=== PATIENT | female | born 1995 | race Caucasian/White ===

== ENCOUNTER 2024-09-22 06:40 | Day surgery (SDC) | payer BC, SELFPAY ==
[2024-09-19 07:49] VITALS: BMI 19.3
[2024-09-22] VITALS (8 sets, daily range): BP systolic 100–120; BP diastolic 66–76; PULSE 12–87; RESP 14–98; TEMP 36.5–37.2; O2SAT 97–100; BMI 19.3
[2024-09-22] MEDS: ACETAMINOPHEN 325 MG TABLET 975 MG PO (07:12)
[2024-09-22] MEDS: LACTATED RINGERS 1,000 ML 42 ML IV (07:14)
--- NOTE | 2024-09-22 07:37 | PM.GYNHP.1 ---
History of Present Illness History of Present Illness Narrative: Tracy Hsu is a 28 year old female with an embedded IUD. She is here for a diagnostic hysteroscopy and IUD removal. Attempted removal in the office but was unable. [facility] Social History household members: significant other Smoking Status: Never smoker alcohol intake: current Meds Home Medications and Allergies Home Medications Medication Instructions Recorded Confirmed Type No Known Home Medications 09/18/24 09/18/24 History Allergies Allergy/AdvReac Type Severity Reaction Status Date / Time amoxicillin [From Augmentin] Allergy Mild Rash Verified 09/22/24 07:10 clavulanic acid Allergy Mild Rash Verified 09/22/24 07:10 [From Augmentin] Exam Vital Signs (past 8 hours): - 09/22/24 07:30 Temperature 98.9 F Pulse Rate 85 Respiratory Rate 19 Blood Pressure 120/75 Pulse Oximetry 100 Oxygen Delivery Method Room Air Oxygen Delivery Method Room Air Narrative Exam Narrative: Generally: NAD Lungs: CTA bilat CV: RRR Abd: Soft, flat, no scars. Ext: No edema Assessment & Plan Assessment & Plan narrative: Assessment: 28 year old G0 with an embedded IUD, unable to remove in the office Plan: Diagnostic hysteroscopy with removal of IUD The risks, alternatives to the procedure were explained to the patient including bleeding, infection, and uterine width duration she understands these risks and agrees to proceed. A full par Q was held and signed. Time-Based Coding :: [TOTAL MINUTES] spent with patient and on the chart (including review of chart, obtaining history, exam, reviewing outside data, placing orders, documenting exam and treatment plan, and counseling patient) on [DATE].
--- NOTE | 2024-09-22 07:44 | PM.PREOP ---
Pre-operative Note Interval Note History & Physical reviewed/Exam performed by Physician: Yes Changes to H&P: No H&P completed within 30 days and has changed as indicated here:: 09/22/24
--- NOTE | 2024-09-22 07:55 | SUR.OPER ---
Lithotomy on padded OR bed, head on pillow, arms secured on padded arm boards at <90 degrees abduction. Legs secured in padded yellow fins stirrups.
--- NOTE | 2024-09-22 08:10 | PM.GYNOP.1 ---
Operative Date/Time/Diagnoses Date of procedure: 09/22/24 Time of procedure: 08:10 Pre-op diagnosis: Embedded IUD in uterine wall Unable to remove in the office Post-op diagnosis: same Procedure & Clinicians Procedure: Procedures Operation Date: 09/22/24 07:45 Actual Procedure Side Surgeon p Diagnostic Hysteroscopy with removal of IUD Elham Sewell MD Indications: 28-year-old 0 with an IUD that is embedded in the uterine wall. We were unable to remove this in the office due to patient discomfort. Surgeon: Elham Sewell Anesthesia Type: General (LMA) Operative Notes Findings: Six week size anteverted uterus IUD strings in the mid uterus Right arm of the ParaGard IUD in embedded in the right uterine wall Closure Type: not applicable Specimen(s): none Estimated blood loss (mL): 3 Procedure in detail: After informed consent was obtained the patient was taken to the operating room where she was placed in the dorsal supine position. Adequate LMA general anesthesia was achieved, she was placed in the dorsal lithotomy position, and prepped and draped in the usual sterile fashion. A time-out was performed. A bivalve speculum was placed into the vagina. A single-tooth tenaculum was placed on the anterior lip of the cervix. The cervical os was sequentially dilated to the # 8 Hegar dilator. The MyoSure scope passed easily into the endometrial cavity. The strings were visible at the mid uterus. The ParaGard IUD right arm was embedded in the right uterine wall. The hysteroscope was removed. The polyp forceps were passed into the endometrial cavity and the IUD was grasped and it was removed intact. The single-tooth tenaculum was removed from the anterior lip of the cervix. The bivalve speculum was removed from the vagina. Sponge, lap, and instrument counts were correct x2. The patient tolerated the procedure well, and was taken to PACU in stable condition. Complications: none Post-operative Condition: stable Disposition: PACU Plan for aftercare: Home after recovery
[2024-09-22] MEDS: ONDANSETRON 4 MG/2 ML INJ IV (08:32)
[2024-09-22] MEDS: OXYCODONE IR 5 MG TABLET PO (08:33)
== END 2024-09-22 09:11 | disposition home or self-care (01) ==
PROVIDERS: Referring Provider Obstetrics & Gynecology; Visit Provider Obstetrics & Gynecology
PROC: 0UDB8ZZ Extraction of Endometrium, Via Natural or Artificial Opening Endoscopic (ICD-10-PCS; CPT 58558; principal; 2024-09-22 07:45)
DX: T83.32XA Displacement of intrauterine contraceptive device, initial encounter (principal); Z30.432 Encounter for removal of intrauterine contraceptive device
CPT/HCPCS: 58562; J1100; J1885; J2250; J2405; J2704; J3010

== ENCOUNTER 2024-12-18 06:14 | Emergency (ER) | payer SELFPAY ==
[2024-12-18] VITALS (9 sets, daily range): BP systolic 112–146; BP diastolic 74–93; PULSE 64–94; RESP 15–22; TEMP 37.1; O2SAT 97–100; BMI 19.6
[2024-12-18 06:33] LABS: Add Manual Diff / Slide Review NO; Basophils Absolute Auto 100 /uL (0-100); Basophils Percent Auto 1.1 % (0-2); Eosinophils Absolute Auto 300 /uL (0-450); Hematocrit 38.8 % (36-46); Hemoglobin 13.2 g/dL (12.0-16.0); Lymphocytes Absolute Auto 2800 /uL (1100-4500); Lymphocytes Percent Auto 30.6 % (25-40); Mean Corpuscular Hemoglobin 31.1 PG (26-34); Mean Corpuscular Volume 91.3 fL (80-100); Monocytes Absolute Auto 700 /uL (0-900); Monocytes Percent Auto 7.1 % (3-14); Neutrophils Absolute Auto 5300 /uL (1500-7000); Neutrophils Percent Auto 58.2 % (50-75); Platelet Count 296 X10^3/uL (150-400); Red Blood Cell Count 4.24 X10^6/uL (4.0-5.2); White Blood Cell Count 9.2 X10^3/uL (4.5-11.0)
--- NOTE | 2024-12-18 06:33 | DI.US.S_ITS ---
PROCEDURE: US PELVIC COMPLETE INDICATIONS: sudden onsent RLQ pain, on menses, HCG neg TECHNIQUE: Real-time scanning was performed of the pelvic organs, with image documentation. Additional endovaginal scanning was necessary due to incomplete visualization of the adnexal and endometrial structures by transabdominal scanning. COMPARISON: [facility], CT, CT ABDOMEN PELVIS W CON, 12/18/2024, 7:11. FINDINGS: Uterus: Uterus is anteverted and normal in size at 7.4 x 3.4 x 5.3 cm. The myometrium is homogeneous. The endometrium measures 5 mm combined thickness. Ovaries: The right ovary measures 2.8 x 5.6 x 2.7 cm, with a calculated ovarian volume of 22 cc. The left ovary measures 1.4 x 2.5 x 2.1 cm, with a calculated ovarian volume of 4 cc. The ovaries have a normal sonographic appearance. Less than 12 follicles can be seen in each ovary. No adnexal masses are seen. Thick-walled right ovarian cystic lesion with the portion of the wall which appears thinned. Additionally, there is echogenic material with acute angulation internally. This measures 3.1 x 2.0 x 2.4 centimeter. Other: No pathologic free abdominal or pelvic fluid. IMPRESSION: Probable ruptured right ovarian hemorrhagic cyst versus hemorrhagic corpus luteum. Given pelvic pain, recommend follow-up in 6-12 weeks per consensus guidelines. We strive to produce accurate, complete, and clear reports of imaging services. To assist us in improving patient care, this report was composed using standard report templates and voice recognition software. Therefore, it may contain abnormal punctuation, insertions and/or omissions. Occasional wrong-word or sound-alike substitutions may occur. Though we review the report and make efforts to correct it, we do recommend that the report be read carefully in proper context to recognize any text inaccuracies. Dictated by: Rayo Nuñez M.D. on 12/18/2024 at 8:10 Approved by: Rayo Nuñez M.D. on 12/18/2024 at 8:16
[2024-12-18] MEDS: KETOROLAC 30 MG/ML VIAL 15 MG IV (06:38)
[2024-12-18 06:42] LABS: Alanine Aminotransferase 14 IU/L (<35); Albumin 4.7 g/dL (3.5-5.0); Albumin Globulin Ratio 1.7 (1.0-2.8); Alkaline Phosphatase 49 U/L (38-126); Aspartate Aminotransferase 19 IU/L (14-36); Bilirubin Total 0.5 mg/dL (0.2-1.3); Blood Urea Nitrogen 12 mg/dL (7-17); Calcium 9.3 mg/dL (8.4-10.2); Carbon Dioxide 23 mmol/L (22-32); Chloride 105 mmol/L (98-107); Estimated Glomerular Filt Rate > 60 mL/min (>60); Globulin 2.8 g/dL (1.7-4.1); Glucose 105 mg/dL (70-100); HEMOLYSIS < 15 (0-50); Lipase 131 U/L (23-300); Potassium 3.9 mmol/L (3.4-5.1); Sodium 139 mmol/L (137-145); Total Protein 7.5 g/dL (6.3-8.2)
--- NOTE | 2024-12-18 07:00 | ED_ITS ---
HPI - Abdominal Pain General Chief Complaint: Abdominal Pain Stated Complaint: abd pain Time Seen by Provider: 12/18/24 06:33 Source: patient Mode of arrival: Ambulatory History of Present Illness HPI narrative: 29-year-old female no significant past medical history presents from home for evaluation of right lower quadrant abdominal pain, states it has been causing her enough pain that it is making her slightly lightheaded/dizzy. States that her symptoms are different from her normal menstrual cycle pains, states she is currently on her period. She denies any other symptoms such as headache visual disturbances chest pain shortness of breath fever chills or any other GI/ symptoms time. Related Data Previous Rx's Medication Instructions Recorded ondansetron 4 mg disintegrating 4 mg PO Q6H PRN nausea and 09/25/24 tablet vomiting #20 tabs norethindrone (contraceptive) 0.35 0.35 mg PO DAILY #84 tabs 10/27/24 mg tablet ondansetron 4 mg disintegrating 4 mg PO Q8H PRN nausea and 12/18/24 tablet vomiting 5 days #15 tabs sulfamethoxazole 800 1 tab PO BID 5 days #10 tabs 12/18/24 mg-trimethoprim 160 mg tablet (Bactrim DS) Allergies Allergy/AdvReac Type Severity Reaction Status Date / Time amoxicillin [From Augmentin] Allergy Mild Rash Verified 10/27/24 15:49 clavulanic acid Allergy Mild Rash Verified 10/27/24 15:49 [From Augmentin] Review of Systems Review of Systems Narrative: General: Denies fever, chills, weight loss HEENT: Denies headache, eye drainage, eye irritation, head trauma, sore throat, voice change Cardiovascular: Denies any chest pain, palpitations, shortness of breath, tachycardia Respiratory: Denies any shortness of breath, cough, wheeze, stridor GI/: Positive abdominal pain, denies nausea, vomiting, diarrhea, bright red blood per rectum, melanotic stools, urinary frequency, urinary retention, dysuria, hematuria MSK: Denies any joint pain, muscle pains, swelling Skin: Denies any rashes, lesions, discoloration Neuro: Denies any headache, lightheadedness, dizziness, fainting, weakness Psych: Denies SI/HI Patient History Social History household members: significant other Smoking Status: Never smoker alcohol intake: current Smoking Status: Never smoker alcohol intake frequency: holidays/special occasions only Exam Narrative Exam Narrative: General: Cooperative, comfortable, well-developed, not in acute distress HEENT: Normocephalic, atraumatic, PERRLA, normal sclera, eyelids normal, Neck: Active full range of motion, atraumatic Chest: Normal to inspection, negative crepitus, no overlying erythema ecchymosis Respiratory: Normal respiratory effort, not in acute respiratory distress, clear to auscultation bilaterally negative cough, wheeze, tachypnea, rhonchi, rales Cardiology: Regular rate rhythm negative gallop, murmur, rubs GI/: Normal to inspection, soft, nonrigid, minor tenderness to palpation to the lower abdomen, exam deferred MSK: Full range of active range of motion of all 4 extremities, atraumatic Skin: No rashes lesions noted Neuro: Alert awake oriented x3, moves all 4 extremities spontaneously, cranial nerves intact, able to answer all questions appropriately follows commands appropriately Psych: Cooperative, negative suicidal or homicidal ideations Initial Vital Signs Initial Vital Signs: Vital Signs Temperature 98.7 F 12/18/24 06:18 Pulse Rate 94 H 12/18/24 06:18 Respiratory Rate 18 12/18/24 06:18 Blood Pressure 146/93 H 12/18/24 06:18 Pulse Oximetry 100 12/18/24 06:18 Oxygen Delivery Method Room Air 12/18/24 06:18 Course Orders Ordered: ED Orders 12/18/24 06:21 Complete Blood Count AUTO DIFF Stat Comprehensive Metabolic Panel Stat Lipase Stat 12/18/24 06:31 Urine Culture Stat Urine Microscopic Stat 12/18/24 06:33 US pelvic complete Stat 12/18/24 07:03 CT abdomen pelvis w con Stat Ondansetron HCl (Ondansetron 4 Mg/2 Ml Inj) 4 mg IV NOW PRN PRN Reason: Nausea And Vomiting Ondansetron HCl (Ondansetron 4 Mg Odt) 4 mg PO NOW PRN PRN Reason: Nausea And Vomiting Discontinued Medications Sodium Chloride (Normal Saline 0.9%) 1,000 mls @ 1,000 mls/hr IV BOLUS ONE Stop: 12/18/24 08:10 Last Admin: 12/18/24 07:56 Dose: 1,000 mls/hr Documented By: RB Ketorolac Tromethamine (Ketorolac 30 Mg/Ml Vial) 15 mg IV NOW ONE Stop: 12/18/24 06:36 Last Admin: 12/18/24 06:38 Dose: 15 mg Documented By: DANI Morphine Sulfate (Morphine 4 Mg/Ml Inj) 4 mg IV NOW ONE Stop: 12/18/24 07:12 Last Admin: 12/18/24 07:56 Dose: 2 mg Documented By: RB Ondansetron HCl (Ondansetron 4 Mg/2 Ml Inj) 4 mg IV NOW ONE Stop: 12/18/24 07:12 Last Admin: 12/18/24 07:56 Dose: 4 mg Documented By: RB Trimethoprim/Sulfamethoxazole (Trimeth/Sulfa 160/800 (Ds) Tablet) 1 tab PO NOW ONE Stop: 12/18/24 08:33 Vital Signs Vital signs: Vital Signs - 8 hr 12/18/24 06:18 Temperature 98.7 F Pulse Rate 94 H Respiratory Rate 18 Blood Pressure 146/93 H Pulse Oximetry 100 Oxygen Delivery Method Room Air MDM - Abdominal Pain Differential Diagnosis Differential diagnosis: Likely acute appendicitis, constipation, diverticulitis, small bowel obstruction and other (Urinary tract infection, pyelonephritis, electrolyte abnormality) Lab Data 12/18/24 06:21 12/18/24 06:21 Labs: Lab Results 12/18/24 12/18/24 Range/Units 06:21 06:31 WBC 9.2 (4.5-11.0) X10^3/uL RBC 4.24 (4.0-5.2) X10^6/uL Hgb 13.2 (12.0-16.0) g/dL Hct 38.8 (36-46) % MCV 91.3 (80-100) fL MCH 31.1 (26-34) PG MCHC 34.0 (30-36) % RDW 13.0 (11.6-14.8) % Plt Count 296 (150-400) X10^3/uL Neut % (Auto) 58.2 (50-75) % Lymph % (Auto) 30.6 (25-40) % Mobile % (Auto) 7.1 (3-14) % Eos % (Auto) 3.0 (2-4) % Baso % (Auto) 1.1 (0-2) % Neut # (Auto) 5300 (0471-2294) /uL Lymph # (Auto) 2800 (3747-8906) /uL Mobile # (Auto) 700 (0-900) /uL Eos # (Auto) 300 (0-450) /uL Baso # (Auto) 100 (0-100) /uL Sodium 139 (137-145) mmol/L Potassium 3.9 (3.4-5.1) mmol/L Chloride 105 (98-107) mmol/L Carbon Dioxide 23 (22-32) mmol/L BUN 12 (7-17) mg/dL Creatinine 0.80 (0.52-1.04) mg/dL Estimated GFR > 60 (>60) mL/min BUN/Creatinine Ratio 15.0 (6-22) Glucose 105 H (70-100) mg/dL Calcium 9.3 (8.4-10.2) mg/dL Total Bilirubin 0.5 (0.2-1.3) mg/dL AST 19 (14-36) IU/L ALT 14 (<35) IU/L Alkaline Phosphatase 49 (38-126) U/L Total Protein 7.5 (6.3-8.2) g/dL Albumin 4.7 (3.5-5.0) g/dL Globulin 2.8 (1.7-4.1) g/dL Albumin/Globulin Ratio 1.7 (1.0-2.8) Lipase 131 (23-300) U/L Urine RBC 10-30/hpf H (0-5/HPF) Urine WBC 10-30/hpf H (0-5/HPF) Ur Squamous Epith Cells 1-5 /hpf (0-5/HPF) Urine Bacteria Few (2-10) H (None) Urine Mucus 3+ H (Negative) Ur Culture Indicated? Specimen cultured Vol Urine Centrifuged 10ml (spun) Point of care testing: Point of Care Testing Test Results Negative Urine Dip Bedside Urine Glucose Negative Bedside Urine Bilirubin - Negative Bedside Urine Ketone - Negative Urine Specific [place] 1.025 Bedside Urine Occult Blood +++ Bedside Urine pH 6 Bedside Urine Protein +/- 15 Bedside Urine Urobilinogen - Negative Bedside Urine Nitrite - Negative Bedside Urine Leukocytes - Negative Esterase Imaging Data US - COMBINATION PRESSER: Radiologist's Impression: [address] [address] Ultrasound Report Signed Patient: Tracy Hsu MR#: [id number] : 1995 Acct:[id number] Age/Sex: 29 / F Date of Service: 12/18/24 Loc: ED Accession Number: [id number] Procedure: US pelvic complete Ordering Provider: Alfred Easley MD PROCEDURE: US PELVIC COMPLETE INDICATIONS: sudden onsent RLQ pain, on menses, HCG neg TECHNIQUE: Real-time scanning was performed of the pelvic organs, with image documentation. Additional endovaginal scanning was necessary due to incomplete visualization of the adnexal and endometrial structures by transabdominal scanning. COMPARISON: [facility], CT, CT ABDOMEN PELVIS W CON, 12/18/2024, 7:11. FINDINGS: Uterus: Uterus is anteverted and normal in size at 7.4 x 3.4 x 5.3 cm. The myometrium is homogeneous. The endometrium measures 5 mm combined thickness. Ovaries: The right ovary measures 2.8 x 5.6 x 2.7 cm, with a calculated ovarian volume of 22 cc. The left ovary measures 1.4 x 2.5 x 2.1 cm, with a calculated ovarian volume of 4 cc. The ovaries have a normal sonographic appearance. Less than 12 follicles can be seen in each ovary. No adnexal masses are seen. Thick-walled right ovarian cystic lesion with the portion of the wall which appears thinned. Additionally, there is echogenic material with acute angulation internally. This measures 3.1 x 2.0 x 2.4 centimeter. Other: No pathologic free abdominal or pelvic fluid. IMPRESSION: Probable ruptured right ovarian hemorrhagic cyst versus hemorrhagic corpus luteum. Given pelvic pain, recommend follow-up in 6-[address] weeks [address] guidelines. CT scan - abdomen/pelvis: Radiologist's Impression: Preliminary read showing no evidence of colitis diverticulitis bowel obstruction obstructive uropathy or acute appendicitis, questionable inflammatory changes adjacent to the cervix and uterus otherwise no acute finding MDM Narrative Medical decision making narrative: 29-year-old female presenting for right lower quadrant abdominal pain started several hours prior to arrival. Patient does endorse some nausea associated with the pain but no emesis. States that she is currently on her menstrual cycle. Not on any blood thinners. No trauma no falls. Urinalysis consistent with an acute urinary tract infection patient will be given antibiotics here and sent home with a prescription. Patient allergic to penicillins therefore will give Bactrim. Ultrasound showing evidence of hemorrhagic cyst as well as a 3 cm cyst to the left. CT scan without any acute findings. Repeat abdominal exam at discharge is soft nontender non peritoneal nature. Lab work unremarkable, patient will be sent home with outpatient follow up with OBGYN, patient follows with Dr. Sewell, as well as primary care, strict return precautions given they verbalized understanding of this and agrees to being discharged home with outpatient follow up Discharge Plan Departure Patient Disposition: Home Clinical Impression: Urinary tract infection, Ovarian cyst, Hemorrhagic cyst of ovary Instructions: DI for Urinary Tract Infection (UTI) Activity Restrictions/Additional Instructions: Please follow up with the primary care and OBGYN in outpatient setting Please read the discharge instructions sheet carefully and bring all papers to all doctor follow-up visits, as it may contain information that your doctor may want to see. Disease processes change and evolve, if your symptoms worsen or if you develop any new symptoms that are concerning to you please return for evaluation. Your evaluation today does not show any evidence of any life- threatening/serious illnesses requiring admission to the hospital or surgery. Please follow-up with your doctor for re-evaluation in approximately 1 day. Seek immediate medical attention for any worrisome symptoms. *If you do not have a primary care provider please contact the [facility] Resource line at [phone]. They will ask some questions about your medical history and help get you set up with a doctor in the community. Prescriptions: New sulfamethoxazole-trimethoprim [Bactrim DS] 800-160 mg tablet 1 tab PO BID 5 Days Qty: 10 0RF ondansetron 4 mg tablet,disintegrating 4 mg PO Q8H PRN (Reason: nausea and vomiting) 5 Days Qty: 15 0RF No Action ondansetron 4 mg tablet,disintegrating 4 mg PO Q6H PRN (Reason: nausea and vomiting) Qty: 20 0RF norethindrone (contraceptive) 0.35 mg tablet 0.35 mg PO DAILY Qty: 84 3RF Referrals: Miscellaneous,Doctor, [Primary Care Provider] - Stand Alone Forms: Patient Portal/API/Survey
--- NOTE | 2024-12-18 07:03 | DI.CT.S_ITS ---
PROCEDURE: CT ABDOMEN PELVIS W CON INDICATIONS: RLQ abd pain TECHNIQUE: After the administration of intravenous contrast, axial sections acquired from the lung bases to the pubic symphysis. Coronal and sagittal reformats were performed. For radiation dose reduction, the following was used: automated exposure control, adjustment of mA and/or kV according to patient size. COMPARISON: [facility], , US PELVIC COMPLETE, 12/18/2024, 6:51. FINDINGS: Image quality: Diagnostic. Lower Chest: No significant findings. ABDOMEN: Liver: No solid mass. Gallbladder: No radiopaque gallstones or wall thickening. Biliary ducts: No biliary dilation. Pancreas: No ductal dilation. Spleen: Size is within normal limits. Adrenal Glands: No adrenal nodules. Kidneys and Ureters: No hydronephrosis. No solid mass. No complex renal cystic lesion which requires follow up. Stomach and Bowel: Normal colonic caliber, without significant wall thickening. Probable normal appendix. Peritoneum: No abnormal intraperitoneal fluid. No free air. Ventral Wall: No significant ventral hernia. Abdominal Nodes: No retroperitoneal or mesenteric adenopathy by size criteria. Vessels: Aorta and inferior vena cava are normal in size. PELVIS: Pelvic Organs: There is physiologic fluid in the pelvis. A ruptured right ovarian cyst is noted on ultrasound.. Bladder: No bladder wall thickening, accounting for underdistention. Pelvic Nodes: No enlarged lymph nodes. Miscellaneous: No inguinal hernias are seen. Bones: No aggressive osseous abnormality. Incidental note is made of a minimal posterior disc protrusion at L1-L2 and a disc bulge at L5-S1. IMPRESSION: 1. Normal appendix. No acute appendicitis. 2. Findings likely are related to a ruptured right ovarian cyst with physiologic fluid. 3. Incidental note made a minimal disc protrusion at L1-L2 and disc bulge at L5-S1. Comment: Final report is concordant with preliminary interpretation provided by [facility]. Dictated by: Ryley Berg M.D. on 12/18/2024 at 8:29 Approved by: Ryley Berg M.D. on 12/18/2024 at 8:34
[2024-12-18 07:05] LABS: RBC Urine 10-30/HPF (0-5/HPF); Squamous Epithelial Cell Urine 1-5 /HPF (0-5/HPF); Urine Volume 10mL (spun); WBC Urine 10-30/HPF (0-5/HPF)
[2024-12-18 07:06] LABS: Bacteria Urine Few (2-10); Mucus Urine 3+ (Negative)
[2024-12-18 07:07] LABS: Culture Indicated Urine Specimen Cultured
[2024-12-18] MEDS: MORPHINE 4 MG/ML INJ IV (07:56)
[2024-12-18] MEDS: ONDANSETRON 4 MG/2 ML INJ IV (07:56)
[2024-12-18] MEDS: SODIUM CHLORIDE 0.9% 1,000 ML 1000 ML IV (07:56)
--- NOTE | 2024-12-18 07:57 | PC.NURSE ---
radiology tech brought patient back and informed this RN that there was blood on bedding when she was transferred from table. CT replaced bedding. This RN immediately asked patient about bleeding. Patient informed this RN that she just started her period. Provider aware. Patient declined to have 4mg of morphine and instead asked for only 2mg to be administered. 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
[2024-12-18] MEDS: TRIMETH/SULFA 160/800 (DS) TABLET 1 TAB PO (08:46)
== END 2024-12-18 08:49 | disposition home or self-care (01) ==
PROVIDERS: Emergency Medicine; Emergency Provider Student in an Organized Health Care Education/Training Program
DX: N39.0 Urinary tract infection, site not specified (principal); N83.201 Unspecified ovarian cyst, right side; R11.0 Nausea
CPT/HCPCS: 36415; 74177; 76856; 80053; 81003; 81015; 81025; 83690; 85025; 87077; 87086; 87186; 96361; 96374; 96375; 99284; J1885; J2270; J2405; Q9967

== ENCOUNTER → 2025-04-10 11:51 | Outpatient (CLI) | payer BC, SELFPAY ==
--- NOTE | 2025-04-10 11:53 | DI.US.S_ITS ---
PROCEDURE: US PELVIC COMPLETE INDICATIONS: Pelvic pain/follow up cyst TECHNIQUE: Real-time scanning was performed of the pelvic organs, with image documentation. Additional endovaginal scanning was necessary due to incomplete visualization of the adnexal and endometrial structures by transabdominal scanning. COMPARISON: [facility], US, US PELVIC COMPLETE, 12/18/2024, 6:51. FINDINGS: Uterus: Uterus is anteverted and normal in size at 6.4 x 4 x 3.3 cm. The myometrium is homogeneous. The endometrium measures 6 mm combined thickness. No abnormal vascularity can be seen along the endometrial stripe. Ovaries: The right ovary measures 2.8 x 2.5 x 1.5 cm, with a calculated ovarian volume of 5.7 cc. The left ovary measures by 3.9 x 1.6 x 2.1 cm, with a calculated ovarian volume of 7 cc. The ovaries have a normal sonographic appearance. Less than 12 follicles can be seen in each ovary. No adnexal masses are seen. Normal appearing arterial and venous waveforms are confirmed to each ovary. Tenderness is noted when scanning over the adnexal regions. Other: No pathologic free abdominal or pelvic fluid. IMPRESSION: Tenderness is noted with scanning over the adnexal regions. However, an anatomic cause of the presenting history is not identified. We strive to produce accurate, complete, and clear reports of imaging services. To assist us in improving patient care, this report was composed using standard report templates and voice recognition software. Therefore, it may contain abnormal punctuation, insertions and/or omissions. Occasional wrong-word or sound-alike substitutions may occur. Though we review the report and make efforts to correct it, we do recommend that the report be read carefully in proper context to recognize any text inaccuracies. Dictated by: Jason Longoria M.D. on 04/10/2025 at 13:20 Approved by: Jason Longoria M.D. on 04/10/2025 at 13:33
== END ==
PROVIDERS: PCP Obstetrics & Gynecology; Referring Provider Obstetrics & Gynecology; Visit Provider Obstetrics & Gynecology
DX: N83.209 Unspecified ovarian cyst, unspecified side (principal); R10.2 Pelvic and perineal pain
CPT/HCPCS: 76830; 76856; 93975